=== PATIENT | male | born 1995 | race African-American/Black ===

== ENCOUNTER 2025-05-15 19:32 | Inpatient (IN) | payer SELFPAY ==
[~2025-05-15] VITALS: Ht 182.9 cm; Wt 81.6 kg
[2025-05-15] MEDS: HALOPERIDOL LACTATE 5MG/ML VIAL IM ONE (20:11)
[2025-05-15] MEDS: DIPHENHYDRAMINE 50MG/ML VIAL IM ONE (20:11)
[2025-05-15] MEDS: LORAZEPAM 2MG/ML UD SYRINGE IM SCH (20:12)
[2025-05-15 21:33] VITALS: O2SAT 99
[2025-05-15 21:44] LABS: BASOPHILS % 1.1 % (0.0-2.0); EOSINOPHILS % 0.7 % (0.0-5.0); HEMATOCRIT. 44.3 % (42.0-52.0); HEMOGLOBIN. 14.7 g/dL (14.0-18.0); LYMPHOCYTES % 39.9 % (20.0-50.0); MEAN PLATELET VOLUME 7.0 fl (7.4-10.4); MONOCYTES % 4.4 % (2.0-8.0); NEUTROPHILS % 53.9 % (40.0-76.0); PLATELET 276 x1000/uL (130-400); RED BLOOD CELL COUNT 4.54 mill/uL (4.7-6.1); RED CELL DISTRIBUTION WIDTH 16.0 % (11.6-14.6)
[2025-05-15 21:52] LABS: CREATININE 0.8 mg/dL (0.6-1.3); UREA NITROGEN BLOOD < 5 mg/dL (9-23)
[2025-05-15 21:54] LABS: ASPARTATE AMINOTRANSFERASE 27 IU/L (<34); BILIRUBIN DIRECT 0.2 mg/dL (<=3.0); BILIRUBIN TOTAL 0.8 mg/dL (0.1-1.0); PROTEIN TOTAL 7.0 g/dL (6.0-8.3)
[2025-05-16] VITALS: BP 111/82; PULSE 68; RESP 17; TEMP 36.3; O2SAT 99
[2025-05-16 00:40] VITALS: BP 111/82; PULSE 68; RESP 18; TEMP 36.3624
[2025-05-16] MEDS: FOLIC ACID 1 MG, THIAMINE HCL 100 MG, MVI, ADULT NO.1 10 ML in DEXTROSE 5% WATER 1,000 ML IV SCH (03:33)
[2025-05-16 08:00] VITALS: BP 104/60; PULSE 74; RESP 17; TEMP 36.7; O2SAT 99
[2025-05-16] MEDS: PANTOPRAZOLE SODIUM 40 MG/VIAL IV SCH (09:03)
[2025-05-16] MEDS ORDERED: LORAZEPAM 1MG TABLET PO PRN (11:45)
[2025-05-16] MEDS ORDERED: CHLORDIAZEPOXIDE 25MG CAPSULE PO SCH (14:00)
== END 2025-05-16 12:05 | disposition left against medical advice (07) | DRG 770 ==
LOC: ER 19:32 → 6WST 22:59 → EDBEDREQTM 23:04 → EDBEDREQ 23:04 → EDBEDREQSVC 23:04 → ENRESERV 23:37
PROVIDERS: ADMIT Internal Medicine; ATTEND Internal Medicine
DX: F10.129 Alcohol abuse with intoxication, unspecified (principal); D72.819 Decreased white blood cell count, unspecified; Y90.8 Blood alcohol level of 240 mg/100 ml or more; Z53.29 Procedure and treatment not carried out because of patient's decision for other reasons
CPT/HCPCS: 36415; 80048; 80076; 80320; 85025; 96372; 99291; G0378; J1200; J1630; J2060; J2470; J3411; J3490; J7070; G0480